=== PATIENT | male | born 1980 | race Hispanic/Latino ===

== ENCOUNTER 2020-03-13 08:32 | Emergency (ER) | payer OTHER ==
[~2020-03-13] VITALS: Ht 167.6 cm; Wt 75.0 kg
[~2020-03-13 08:32] MED LIST: AUGMENTIN875 MG PO; FLOMAX0.4 M1 OR; LORTAB5 PO; NAPROSYN500 MG OR; NEXIUM20 M1 OR; NO HOME MEDS; PENICILLN VK500 MG OR; PROMETHAZINE25 MG OR; TRAMADOL HCL50 MG OR; ULTRAM50 MG OR; ZPAK OR
[2020-03-13 10:09] LABS: HEMATOCRIT 45.9 % (39.0-50.0); HEMOGLOBIN 15.2 g/dl (14.0-18.0); IMMATURE GRANULOCYTES 0.7 % (0.0-5.0); MEAN CELL VOLUME 86.8 fL CALC (80.0-100.0); MEAN CORPUSCULAR HGB 28.7 pG CALC (26.0-32.0); MEAN CORPUSCULAR HGB CONC 33.1 g/dL CAL (32.0-36.0); NEUT# 5.39 thou/uL (1.82-7.42); RED BLOOD COUNT 5.29 mill/uL (4.70-6.10); RED CELL DISTRI WIDTH 14.6 % (11.5-15.5); URINE BILIRUBIN - DIPSTICK NEGATIVE (NEGATIVE); URINE BLOOD DIPSTICK NEGATIVE (NEGATIVE); URINE COLOR YELLOW; URINE GLUCOSE - DIPSTICK NEGATIVE (NEGATIVE); URINE KETONE NEGATIVE (NEGATIVE); URINE LEUK ESTERASE NEGATIVE (NEGATIVE); URINE NITRITE - DIPSTICK NEGATIVE (Negative); URINE PROTEIN - DIPSTICK NEGATIVE (NEG-TRACE); URINE SPECIFIC GRAVITY 1.015; URINE UROBILINOGEN - DIPSTICK 0.2 E.U./dL (0.2)
[2020-03-13 10:18] LABS: ALBUMIN 4.2 g/dL (3.2-5.0); ALKALINE PHOSPHATASE 66 u/l (38-126); AMYLASE 67 u/l (30-110); ANION GAP 9 (6-22 (CALC)); BILIRUBIN, TOTAL 0.4 mg/dL (0.0-1.4); BUN 12 mg/dL (9-20); BUN/CREATININE RATIO 18 (12-20 (CALC)); CARBON DIOXIDE 30 mmol/l (22-30); CHLORIDE 102 mmol/l (95-108); CREATININE 0.7 mg/dL (0.7-1.3); GFR > 60 ML/MIN (>=60 (CALC)); GFR FOR AFR.AMER. > 60 ML/MIN (>=60 (CALC)); INTERNATIONAL NORMALIZED RATIO 1.2 RATIO (0.7-1.3); LIPASE 78 u/l (23-300); POTASSIUM 4.2 mmol/l (3.5-5.1); PROTHROMBIN TIME 12.7 SECONDS (9.0-12.5); SGOT/AST 32 u/l (17-59); SODIUM 137 mmol/l (137-146); TOTAL PROTEIN 7.4 g/dL (6.3-8.2)
[2020-03-13 10:31] LABS: MYOGLOBIN 24 ng/mL (0 - 121)
[2020-03-13] MEDS ORDERED: ONDANSETRON4 MG PO (11:11)
[2020-03-13 11:19] VITALS: BP 114/75
== END 2020-03-13 11:29 | disposition home or self-care (01) | DRG 392 ==
LOC: ED 08:32
PROVIDERS: Emergency Medicine
DX: R19.7 Diarrhea, unspecified (principal); R05 Cough; R11.0 Nausea; F17.210 Nicotine dependence, cigarettes, uncomplicated; Z20.828 Contact with and (suspected) exposure to other viral communicable diseases

== ENCOUNTER 2024-03-20 19:40 | Emergency (ER) | payer SELFPAY ==
[~2024-03-20] VITALS: Ht 167.6 cm; Wt 83.0 kg
[~2024-03-20 19:40] MED LIST changes: +ONDANSETRON4 MG PO
[2024-03-20 19:46] VITALS: BP 138/75
[2024-03-20] MEDS ORDERED: DICLOFENAC SODIUM 75 MG/TAB PO ONE (20:35)
[2024-03-20] MEDS ORDERED: VOLTAREN - GENE75 MG PO (20:37)
== END 2024-03-20 20:51 | disposition home or self-care (01) | DRG 558 ==
LOC: ED 19:40
DX: M77.8 Other enthesopathies, not elsewhere classified (principal)